=== PATIENT | male | born 1980 | race Caucasian/White ===

== ENCOUNTER 2018-05-17 08:54 | Emergency (ER) | payer OTHER ==
[~2018-05-17] VITALS: Ht 188 cm; Wt 106.6 kg
[2018-05-17 09:03] VITALS: BP 170/95
[2018-05-17] MEDS ORDERED: BACTRIM DS TAB1 EACH PO (09:10)
[2018-05-17] MEDS ORDERED: KEFLEX500 M1 PO (09:10)
[2018-05-17] MEDS ORDERED: NORCO 5-325 TA1 EACH PO (09:10)
== END 2018-05-17 09:24 | disposition home or self-care (01) ==
LOC: M.ERS 08:54
DX: L03.113 Cellulitis of right upper limb (principal)